=== PATIENT | male | born 1940 | race African-American/Black ===

== ENCOUNTER 2022-12-12 19:32 | Inpatient (IN) | payer MEDICARE, OTHER ==
[~2022-12-12] VITALS: Ht 167.6 cm; Wt 99.6 kg
[~2022-12-12 19:32] MED LIST: ALLO100T; BENA5TAB14; FURO20TA3; MAGN400T23; PRED5PAK2; PROB500T9; TACR0.5C3
[2022-12-12 21:01] LABS: Basophils # (auto) 0 10 ^3/uL (0-0.2); Basophils % (auto) 0.1 % (0.0-2.0); Eosinophils # (auto) 0 10 ^3/uL (0-0.8); Eosinophils % (auto) 0.2 % (0.0-7.0); Hematocrit 34.6 % (41.0-53.0); Hemoglobin 11.4 g/dL (13.5-17.5); Lymphocytes # (auto) 1.4 10 ^3/uL (0.4-5.4); Mean Corpuscular Hemoglobin 31.1 pg (28.0-32.0); Mean Corpuscular Hgb Conc. 32.9 g/dL (32.0-36.0); Mean Corpuscular Volume 94.3 fL (80.0-100.0); Monocytes % (auto) 12.9 % (0.0-12.0); Neutrophils # (auto) 5.5 10 ^3/uL (1.6-8.6); Neutrophils % (auto) 69.8 % (37.0-80.0); Nucleated Red Blood Cells % 0.8 %; Red Blood Cells 3.67 10^6/uL (4.5-5.90); Red Cell Distribution Width 15.7 % (11.8-14.3); White Blood Cell 7.9 10^3/uL (4.4-10.8)
[2022-12-12 21:09] LABS: Albumin 3.1 g/dL (3.4-5.0); BUN/Creatinine Ratio 42.8; Calcium 8.9 mg/dL (8.5-10.1); Potassium 4.9 mmol/L (3.5-5.1)
[2022-12-12 21:11] LABS: Bilirubin, Total 0.5 mg/dL (0.2-1.0); Total Protein 6.5 g/dL (6.4-8.2)
[2022-12-12 21:18] LABS: INR 1.12 (0.9-1.15); Partial Thromboplastin Time 29.4 sec (24.6-33.4)
[2022-12-12] MEDS ORDERED: IOHEXOL 300 MG/ML 100ML BOTTLE IJ ONE (21:57)
[2022-12-12] MEDS ORDERED: ONDANSETRON HCL 4 MG/2 ML VIAL IV PRN (23:30)
[2022-12-12] MEDS ORDERED: ACETAMINOPHEN 325 MG TAB PO PRN (23:30)
[2022-12-12] MEDS ORDERED: DEXTROSE (50%) 50ML SYRG IV PRN (23:30)
[2022-12-13] MEDS: ACCU-CHEK COMFORT CURVE STRIP VI SCH ×4 (06:54→21:42)
[2022-12-13] MEDS: InsuLIN REG 1unit/0.01ml Soln (100units/ml) SC SCH ×4 (06:55→22:23)
[2022-12-13 07:42] LABS: Hematocrit 36.9 % (41.0-53.0); Hemoglobin 11.7 g/dL (13.5-17.5); Mean Corpuscular Hemoglobin 30.4 pg (28.0-32.0); Mean Corpuscular Hgb Conc. 31.9 g/dL (32.0-36.0); Mean Corpuscular Volume 95.4 fL (80.0-100.0); Red Blood Cells 3.86 10^6/uL (4.5-5.90); Red Cell Distribution Width 15.9 % (11.8-14.3); White Blood Cell 9.1 10^3/uL (4.4-10.8)
[2022-12-13 07:44] LABS: Basophils % (manual) 0 (0.0-2.0); Blast Cells 0; Myelocytes % 0; Promyelocytes % 0
[2022-12-13 07:57] LABS: Calcium 9.2 mg/dL (8.5-10.1); Potassium 4.6 mmol/L (3.5-5.1)
[2022-12-13 08:00] LABS: BUN/Creatinine Ratio 45.5; Bilirubin, Total 0.6 mg/dL (0.2-1.0); Total Protein 6.7 g/dL (6.4-8.2)
[2022-12-13 09:21] LABS: Band Neutrophils % (manual) 8; Eosinophils % (manual) 2 (0-7); Lymphocytes % (manual) 21 (10.0-50.0); Metamyelocytes % 3; Monocytes % (manual) 10 (0-12); Reactive Lymphocytes 1
[2022-12-13] MEDS: ASPirin 81 mg TAB PO SCH (10:17)
[2022-12-13] MEDS: PANTOPRAZOLE 40 MG TAB PO SCH (10:18)
[2022-12-13] MEDS: TACROLIMUS 0.5 MG CAP PO SCH ×2 (10:22→22:20)
[2022-12-13] MEDS: amLODIPine BESYLATE 5 MG TAB PO SCH (10:22)
[2022-12-13 15:15] LABS: Urine Bacteria FEW /hpf (None Seen); Urine Blood Negative /uL (Negative); Urine Specific Gravity 1.018 (1.001-1.035); Urine WBC <1 /hpf (0 - 3)
[2022-12-13 15:25] LABS: Alcohol, Urine < 3.0 mg/dL (0-10); Amphetamine Screen, Urine NEGATIVE (NEGATIVE); Barbiturate Scree,Urine NEGATIVE (NEGATIVE); Benzodiazephine Screen, Urine NEGATIVE (NEGATIVE); Cannabinoid Screen, Urine NEGATIVE (NEGATIVE); Cocaine Screen, Urine NEGATIVE (NEGATIVE); Opiate Scree,Urine NEGATIVE (NEGATIVE); Phencyclidine Screen, Urine NEGATIVE (NEGATIVE)
[2022-12-13] MEDS: TAMSULOSIN HYDROCHLORIDE 0.4 MG CAP PO SCH (18:03)
[2022-12-13] MEDS ORDERED: ATORVASTATIN 20 MG TAB PO SCH (22:00)
[2022-12-13 22:02] LABS: Cholesterol 117 mg/dL (< 200)
[2022-12-13 22:05] LABS: HDL Cholesterol 47 mg/dL (40-59); LDL Cholesterol 56 mg/dL (< 100); Triglycerides 138 mg/dL (< 150)
[2022-12-14] VITALS (7 sets, daily range): BP systolic 125–167; BP diastolic 60–85
[2022-12-14] MEDS ORDERED: ALLO100T PO (01:11)
[2022-12-14] MEDS ORDERED: CARV12.544 PO (01:11)
[2022-12-14] MEDS ORDERED: CHOL25CH3 PO (01:11)
[2022-12-14] MEDS ORDERED: ATOR10TA52 PO (01:11)
[2022-12-14] MEDS ORDERED: LOSA100T22 PO (01:11)
[2022-12-14] MEDS ORDERED: TAMS0.4C36 PO (01:11)
[2022-12-14] MEDS ORDERED: NAP500T PO (01:11)
[2022-12-14] MEDS ORDERED: FINA5TAB4 PO (01:11)
[2022-12-14] MEDS ORDERED: AML5T PO (01:11)
[2022-12-14] MEDS ORDERED: PRED20TA2 PO (01:11)
[2022-12-14] MEDS ORDERED: ASPI325T4 PO (01:11)
[2022-12-14] MEDS ORDERED: PIO30T PO (01:11)
[2022-12-14] MEDS ORDERED: TACR1CAP4 PO (01:11)
[2022-12-14] MEDS ORDERED: GLIP10TA9 PO (01:11)
[2022-12-14] MEDS: ACCU-CHEK COMFORT CURVE STRIP VI SCH ×4 (06:45→22:00)
[2022-12-14] MEDS: InsuLIN REG 1unit/0.01ml Soln (100units/ml) SC SCH ×4 (06:47→22:39)
[2022-12-14] MEDS: CLOPIDOGREL BISULFATE 75 MG TAB PO SCH (09:24)
[2022-12-14] MEDS: ASPirin 81 mg TAB PO SCH (09:24)
[2022-12-14] MEDS: amLODIPine BESYLATE 5 MG TAB PO SCH (09:25)
[2022-12-14] MEDS: PANTOPRAZOLE 40 MG TAB PO SCH (09:25)
[2022-12-14] MEDS: TACROLIMUS 0.5 MG CAP PO SCH ×2 (09:26→22:50)
[2022-12-14] MEDS ORDERED: FUROSEMIDE 40 MG/4 ML VIAL IV ONE (12:15)
[2022-12-14 13:31] LABS: Protein, Urine 10.3 mg/dL (0.0-11.9)
[2022-12-14] MEDS: TAMSULOSIN HYDROCHLORIDE 0.4 MG CAP PO SCH (18:37)
[2022-12-14] MEDS ORDERED: ATORVASTATIN 20 MG TAB PO SCH (22:00)
[2022-12-14] MEDS ORDERED: PATIENTS OWN MEDICATION (Prednisone 20 MG) PO SCH (22:00)
[2022-12-14] MEDS: CARVEDILOL 12.5 MG TAB PO SCH (22:48)
[2022-12-15 04:40] VITALS: BP 108/62
[2022-12-15] MEDS: ACCU-CHEK COMFORT CURVE STRIP VI SCH ×3 (07:20→19:45)
[2022-12-15] MEDS: InsuLIN REG 1unit/0.01ml Soln (100units/ml) SC SCH ×3 (07:21→19:46)
[2022-12-15 07:28] LABS: Potassium 4.5 mmol/L (3.5-5.1); Uric Acid 7.6 mg/dL (3.5-7.2)
[2022-12-15 09:13] VITALS: BP 109/64
[2022-12-15] MEDS ORDERED: FINASTERIDE 5 MG TAB PO SCH (10:00)
[2022-12-15] MEDS ORDERED: ALLOPURINOL 100 MG TAB PO SCH (10:00)
[2022-12-15] MEDS ORDERED: FUROSEMIDE 40 MG/4 ML VIAL IV SCH (10:00)
[2022-12-15] MEDS ORDERED: TAMSULOSIN HYDROCHLORIDE 0.4 MG CAP PO SCH (10:00)
[2022-12-15] MEDS: amLODIPine BESYLATE 5 MG TAB PO SCH (11:13)
[2022-12-15] MEDS: PANTOPRAZOLE 40 MG TAB PO SCH (11:14)
[2022-12-15] MEDS: ASPirin 81 mg TAB PO SCH (11:15)
[2022-12-15] MEDS: CARVEDILOL 12.5 MG TAB PO SCH (11:16)
[2022-12-15] MEDS: CLOPIDOGREL BISULFATE 75 MG TAB PO SCH (11:16)
[2022-12-15] MEDS: TACROLIMUS 0.5 MG CAP PO SCH (11:20)
[2022-12-15] MEDS ORDERED: CLOP75TA70 PO (11:22)
[2022-12-15 12:46] VITALS: BP 117/68
[2022-12-15 14:09] VITALS: BP 109/64
[2022-12-15 16:46] VITALS: BP 96/40
[2022-12-15] MEDS: TAMSULOSIN HYDROCHLORIDE 0.4 MG CAP PO SCH (18:12)
== END 2022-12-15 19:00 | disposition home health service (06) | DRG 64 ==
LOC: ER 19:32 → EDBD 19:32 → OVERFLOW 23:32 → WEST WING 12-13 23:00
PROVIDERS: ADMIT Nurse Practitioner; ATTEND Internal Medicine Geriatric Medicine
DX: I63.9 Cerebral infarction, unspecified (principal); N17.0 Acute kidney failure with tubular necrosis; N18.6 End stage renal disease; T86.19 Other complication of kidney transplant; I12.0 Hypertensive chronic kidney disease with stage 5 chronic kidney disease or end stage renal disease; E11.22 Type 2 diabetes mellitus with diabetic chronic kidney disease; R47.01 Aphasia; E11.65 Type 2 diabetes mellitus with hyperglycemia; E78.5 Hyperlipidemia, unspecified; E86.0 Dehydration; M10.9 Gout, unspecified; Z20.822 Contact with and (suspected) exposure to COVID-19; F17.200 Nicotine dependence, unspecified, uncomplicated; N18.9 Chronic kidney disease, unspecified; D63.1 Anemia in chronic kidney disease; E11.21 Type 2 diabetes mellitus with diabetic nephropathy; E66.9 Obesity, unspecified; Z86.73 Personal history of transient ischemic attack (TIA), and cerebral infarction without residual deficits; Z83.3 Family history of diabetes mellitus; Z82.49 Family history of ischemic heart disease and other diseases of the circulatory system; Z79.899 Other long term (current) drug therapy; Z79.82 Long term (current) use of aspirin; Z79.02 Long term (current) use of antithrombotics/antiplatelets
CPT/HCPCS: 36415; 70450; 70496; 70551; 71045; 80048; 80053; 80061; 80197; 80307; 81001; 82306; 82553; 82570; 82962; 83690; 83970; 84100; 84156; 84300; 84484; 84550; 85007; 85025; 85027; 85610; 85730; 87426; 93005; 93306; 93971; 97110; 97116; 97163; G0378; J1815